=== PATIENT | female | born 1995 | race Caucasian/White ===

== ENCOUNTER → 2016-09-12 | Outpatient (CLI) | payer OTHER ==
[~2016-09-12] MED LIST: BCPILLS PO; BUSP15TA70 PO; ESCI1TAB10 PO; MULT1CHW4 PO
[2016-09-12 13:51] LABS: CHOLESTEROL/HDL RATIO 3.2; THYROID STIMULATING HORMONE 2.62 uIu/ml (0.300-4.500)
== END | disposition home or self-care (01) ==
LOC: C.LABBC 11:04
PROVIDERS: ATTEND Internal Medicine
DX: E78.5 Hyperlipidemia, unspecified (principal)

== ENCOUNTER → 2017-03-06 | Outpatient (CLI) | payer OTHER ==
[2017-03-06 11:21] LABS: URINE APPEARANCE CLEAR (CLEAR); URINE BILIRUBIN NEG (NEG); URINE COLOR YELLOW; URINE NITRITE NEG (NEG); URINE PH 7.5 (4.5-7.5); URINE SPECIFIC GRAVITY 1.015 (1.000-1.030); UROBILINOGEN NEG (NEG)
[2017-03-06 11:57] LABS: MANUAL MICROSCOPIC REQUIRED? NO; REVIEW REQ? NO; SULFASALICYLIC ACID POS (NEG)
--- NOTE | 2017-03-06 12:58 | DIAGNOSTIC IMAGING REPORT ---
KUB CLINICAL HISTORY: Right flank pain. COMPARISON STUDY: None. FINDINGS: The bowel gas pattern is normal. No urinary calculi are identified by radiography. Skeletal structures are unremarkable. IMPRESSION: 1. No urinary calculi identified. 2. No bowel obstruction. Electronically signed by: Sae Villagomez M.D. 03/06/2017 12:56 PM Dictated Date/Time: 03/06/2017 12:56 PM
== END | disposition home or self-care (01) ==
LOC: C.RADBC 10:54
PROVIDERS: ATTEND Internal Medicine
DX: R10.9 Unspecified abdominal pain (principal); R39.9 Unspecified symptoms and signs involving the genitourinary system

== ENCOUNTER 2017-07-25 11:10 | Emergency (ER) | payer OTHER ==
[~2017-07-25] VITALS: Ht 162.6 cm; Wt 55.6 kg
[2017-07-25 11:14] VITALS: Ht 162.6 cm; Wt 55.6 kg
[2017-07-25] MEDS ORDERED: CLON0.5T3 PO (11:49)
[2017-07-25] MEDS ORDERED: KETOROLAC TROMETHAMINE 30 MG/ML VIAL IV STA (12:01)
[2017-07-25] MEDS ORDERED: SODIUM CHLORIDE 0.9% 1000ML 1,000 ML IV STA (12:01)
[2017-07-25] MEDS ORDERED: ONDANSETRON INJ 2 MG/ML 2 ML VIAL IV STA (12:01)
[2017-07-25 12:15] LABS: URINE APPEARANCE CLEAR (CLEAR); URINE BILIRUBIN NEG (NEG); URINE COLOR YELLOW; URINE EPITHELIAL CELL AUTO 20-30 /lpf (0-5); URINE NITRITE NEG (NEG); URINE PH 8.5 (4.5-7.5); URINE SPECIFIC GRAVITY 1.019 (1.000-1.030); UROBILINOGEN NEG (NEG); ZZUR CULT IF INDIC CLEAN CATCH NO
[2017-07-25 12:17] LABS: MANUAL MICROSCOPIC REQUIRED? NO; REVIEW REQ? NO
[2017-07-25 12:18] LABS: BASO % 1.5 %; BASO ABS # 0.08 K/uL (0-0.2); COMPLETE YES; EOS % 2.8 %; HEMATOCRIT 38.4 % (37-47); IG% 0.7 %; LYMPH % 29.7 %; LYMPH ABS # 1.62 K/uL (1.2-3.4); MEAN CELL VOLUME 90.1 fL (80-100); MEAN CORPUSCULAR HGB CONC 33.3 g/dl (32-36); MONO % 8.1 %; NEUT % 57.2 %; PLATELET COUNT 269 K/uL (130-400); RED BLOOD COUNT 4.26 M/uL (4.2-5.4); WHITE BLOOD COUNT 5.45 K/uL (4.8-10.8)
--- NOTE | 2017-07-25 12:24 | DIAGNOSTIC IMAGING REPORT ---
CHEST ONE VIEW PORTABLE HISTORY: 21 years-old Female Evaluate Fever/Sepsis acute fever with sepsis COMPARISON: Chest radiograph 09/15/2015 TECHNIQUE: Portable AP view of the chest FINDINGS: Cardiac mediastinal and hilar silhouettes are within normal limits. No pneumothorax, pleural effusion, focal airspace consolidation or overt pulmonary edema. Bones of the chest appear grossly intact. IMPRESSION: No acute process. The above report was generated using voice recognition software. It may contain grammatical, syntax or spelling errors. Electronically signed by: Tripp Painter M.D. 07/25/2017 12:23 PM Dictated Date/Time: 07/25/2017 12:22 PM
[2017-07-25 12:27] LABS: ALT/SGPT 13 U/L (12-78); BLOOD UREA NITROGEN 5 mg/dl (7-18); BUN/CREATININE RATIO 7.9 (10-20); CALCIUM 8.7 mg/dl (8.5-10.1); CARBON DIOXIDE 26 mmol/L (21-32); CHLORIDE 105 mmol/L (98-107); CREATININE 0.67 mg/dl (0.60-1.20); GLUCOSE 97 mg/dl (70-99); POTASSIUM 3.7 mmol/L (3.5-5.1); SODIUM 139 mmol/L (136-145)
[2017-07-25 12:32] LABS: ALKALINE PHOSPHATASE 73 U/L (45-117); AST/SGOT 13 U/L (15-37); CKMB/CK RATIO 0.8 (0-3.0)
[2017-07-25 13:45] LABS: INFLUENZA A PCR Neg for Influ A (NEG); INFLUENZA B PCR Neg for Influ B (NEG)
--- NOTE | 2017-07-25 14:17 | EMERGENCY ROOM VISIT NOTE ---
History Report prepared by Denisa: Darion Ren Under the Supervision of: Dr. Zoran Osorio D.O. First contact with patient: 11:55 Chief Complaint: FLU LIKE SX Stated Complaint: DEHYDRATION, LIGHTHEADED, VOMITING History of Present Illness The patient is a 21 year old female who presents to the Emergency Room with complaints of flu-like symptoms that began 1 week ago. Her symptoms began with an episode of vomiting with nausea the next day. She presented to [facility] who tested her for strep throat which was negative. She then began to develop a cough with yellow sputum, congestion, and a sore throat. Her symptoms persisted throughout the week with some mild abdominal pain. When she woke up today, she had increased nausea with episodes of vomiting and diarrhea. She believes that she is dehydrated secondary to feeling fatigued. She denies any fevers, back pain, or any other abnormal symptoms. She denies any medical problems or known medication allergies. Source of History: patient Onset: 1 week ago Position: other (global) Symptom Intensity: moderate Quality: other (Flu-like symptoms) Timing: constant Associated Symptoms: + sorethroat, + cough, + nausea, + vomiting, + diarrhea , + fatigue, No fevers, No back pain Review of Systems See HPI for pertinent positives & negatives. A total of 10 systems reviewed and were otherwise negative. Past Medical & Surgical Medical Problems: (1) Anxiety (2) Depression (3) No chronic problems (4) Shortened [place] interval Family History Syncope Social History Smoking Status: Never Smoker Smokeless Tobacco Use: No Drug Use: none Marital Status: single Occupation Status: student Current/Historical Medications Scheduled Control Pills ( Control Pills), 1 TAB PO DAILY Buspirone Hcl (Buspar), 15 MG PO BID Escitalopram Oxalate (Lexapro), 20 MG PO DAILY Multiple Vitamins W/ Minerals (Adult Gummy), 1 TAB PO DAILY Scheduled PRN Clonazepam (Klonopin), 1 TAB PO UD PRN for Anxiety Allergies Coded Allergies: Penicillins (Verified Allergy, Intermediate, HIVES, 07/25/17) Shellfish Allergy (Unverified Allergy, Unknown, , 07/25/17) Physical Exam Vital Signs Date Time Temp Pulse Resp B/P (MAP) Pulse Ox O2 Delivery O2 Flow Rate FiO2 07/25/17 13:35 93 16 98 07/25/17 13:30 125/84 07/25/17 13:05 93 20 96 07/25/17 13:00 108/83 07/25/17 12:43 90 07/25/17 12:43 85 18 120/94 98 Room Air 07/25/17 12:41 120/94 07/25/17 11:14 36.7 103 18 125/94 98 Room Air Physical Exam CONSTITUTIONAL/VITAL SIGNS: Reviewed / noted above. GENERAL: Non-toxic in appearance. INTEGUMENTARY: Warm, dry, and [place]. HEAD: Normocephalic. EYES: without scleral icterus or trauma. ENT/OROPHARYNX: clear and moist. LYMPHADENOPATHY/NECK: Is supple without lymphadenopathy or meningismus. RESPIRATORY: Lungs clear and equal. CARDIOVASCULAR: Regular rate and rhythm. GI/ABDOMEN: Soft and nontender. No organomegaly or pulsatile mass. No rebound or guarding. Normal bowel sounds. EXTREMITIES: Warm and well perfused. BACK: No CVA tenderness. NEUROLOGICAL: Intact without focal deficits. PSYCHIATRIC: normal affect. MUSCULOSKELETAL: Normally developed with good muscle tone. Medical Decision & Procedures ER Provider Diagnostic Interpretation: Radiology results as stated below per my review and radiologist interpretation: CHEST ONE VIEW PORTABLE HISTORY: 21 years-old Female Evaluate Fever/Sepsis acute fever with sepsis COMPARISON: Chest radiograph 09/15/2015 TECHNIQUE: Portable AP view of the chest FINDINGS: Cardiac mediastinal and hilar silhouettes are within normal limits. No pneumothorax, pleural effusion, focal airspace consolidation or overt pulmonary edema. Bones of the chest appear grossly intact. IMPRESSION: No acute process. The above report was generated using voice recognition software. It may contain grammatical, syntax or spelling errors. Electronically signed by: Tripp Painter M.D. 07/25/2017 12:23 PM Dictated Date/Time: 07/25/2017 12:22 PM Laboratory Results 07/25/17 11:47 Red Blood Count 4.26, Mean Corpuscular Volume 90.1, Mean Corpuscular Hemoglobin 30.0, Mean Corpuscular Hemoglobin Concent 33.3, Mean Platelet Volume 11.0, Neutrophils (%) (Auto) 57.2, Lymphocytes (%) (Auto) 29.7, Monocytes (%) (Auto) 8.1, Eosinophils (%) (Auto) 2.8, Basophils (%) (Auto) 1.5, Neutrophils # (Auto) 3.12, Lymphocytes # (Auto) 1.62, Monocytes # (Auto) 0.44, Eosinophils # (Auto) 0.15, Basophils # (Auto) 0.08 07/25/17 11:47 Test 07/25/17 00:00 07/25/17 11:47 07/25/17 11:53 Influenza Type A (RT-PCR) Neg for Influ A (NEG) Influenza Type B (RT-PCR) Neg for Influ B (NEG) White Blood Count 5.45 K/uL (4.8-10.8) Red Blood Count 4.26 M/uL (4.2-5.4) Hemoglobin 12.8 g/dL (12.0-16.0) Hematocrit 38.4 % (37-47) Mean Corpuscular Volume 90.1 fL (80-100) Mean Corpuscular Hemoglobin 30.0 pg (25-34) Mean Corpuscular Hemoglobin Concent 33.3 g/dl (32-36) Platelet Count 269 K/uL (130-400) Mean Platelet Volume 11.0 fL (7.4-10.4) Neutrophils (%) (Auto) 57.2 % Lymphocytes (%) (Auto) 29.7 % Monocytes (%) (Auto) 8.1 % Eosinophils (%) (Auto) 2.8 % Basophils (%) (Auto) 1.5 % Neutrophils # (Auto) 3.12 K/uL (1.4-6.5) Lymphocytes # (Auto) 1.62 K/uL (1.2-3.4) Monocytes # (Auto) 0.44 K/uL (0.11-0.59) Eosinophils # (Auto) 0.15 K/uL (0-0.5) Basophils # (Auto) 0.08 K/uL (0-0.2) RDW Standard Deviation 45.7 fL (36.4-46.3) RDW Coefficient of Variation 13.9 % (11.5-14.5) Immature Granulocyte % (Auto) 0.7 % Immature Granulocyte # (Auto) 0.04 K/uL (0.00-0.02) Anion Gap 8.0 mmol/L (3-11) Est Creatinine Clear Calc Drug Dose 114.8 ml/min Estimated GFR () 145.6 Estimated GFR (Non- 125.7 BUN/Creatinine Ratio 7.9 (10-20) Calcium Level 8.7 mg/dl (8.5-10.1) Total Bilirubin 0.2 mg/dl (0.2-1) Direct Bilirubin < 0.1 mg/dl (0-0.2) Aspartate Amino Transf (AST/SGOT) 13 U/L (15-37) Alanine Aminotransferase (ALT/SGPT) 13 U/L (12-78) Alkaline Phosphatase 73 U/L (45-117) Total Creatine Kinase 74 U/L (26-192) Creatine Kinase MB 0.6 ng/ml (0.5-3.6) Creatine Kinase MB Ratio 0.8 (0-3.0) Total Protein 7.5 gm/dl (6.4-8.2) Albumin 3.0 gm/dl (3.4-5.0) Urine Color YELLOW Urine Appearance CLEAR (CLEAR) Urine pH 8.5 (4.5-7.5) Urine Specific Platinum 1.019 (1.000-1.030) Urine Protein NEG (NEG) Urine Glucose (UA) NEG (NEG) Urine Ketones NEG (NEG) Urine Occult Blood NEG (NEG) Urine Nitrite NEG (NEG) Urine Bilirubin NEG (NEG) Urine Urobilinogen NEG (NEG) Urine Leukocyte Esterase NEG (NEG) Urine WBC (Auto) 1-5 /hpf (0-5) Urine RBC (Auto) 0-4 /hpf (0-4) Urine Hyaline Casts (Auto) 1-5 /lpf (0-5) Urine Epithelial Cells (Auto) 20-30 /lpf (0-5) Urine Bacteria (Auto) NEG (NEG) Laboratory results as stated above per my review. Medications Administered Medications (Trade) Dose Ordered Sig/Иван Route Start Time Stop Time Status Last Admin Dose Admin Sodium Chloride 1,000 ml @ 999 mls/hr Q1H1M STAT IV 07/25/17 12:01 07/25/17 13:01 DC 07/25/17 12:36 999 MLS/HR Ketorolac Tromethamine (Toradol Inj) 30 mg NOW STAT IV 07/25/17 12:01 07/25/17 12:04 DC 07/25/17 12:37 30 MG Ondansetron HCl (Zofran Inj) 4 mg NOW STAT IV 07/25/17 12:01 07/25/17 12:04 DC 07/25/17 12:37 4 MG ECG Indication: vomiting Rate (beats per minute): 82 Rhythm: normal sinus Findings: T-wave inversion (V3 and V4), no ectopy ED Course 1155: Previous medical records were reviewed. The patient was evaluated in room C5. A complete history and physical examination was performed. 1201: Ordered Zofran Inj 4 mg IV, Toradol Inj 30 mg IV, Sodium Chloride 1000 ml @ 999 mls/hr IV 1330: On reevaluation, the patient is resting. I discussed the results and findings with the patient. She verbalized agreement of the treatment plan. She was discharged home. Medical Decision Differential includes viral illness, influenza, streptococcal pharyngitis, meningitis, pneumonia, sinusitis, UTI, pyelonephritis, and otitis media. This is a 21-year-old female who presents to the ED with a chief complaint of weakness, dehydration, sore throat, cough and congestion. She's had the symptoms for at least a week. She also reports having some vomiting and diarrhea today. The patient's vital signs are normal. Her physical exam was unremarkable. Blood work reveals a normal CBC, complete metabolic panel and urinalysis. A chest x-ray did not show acute disease. Troponin was negative. EKG shows a normal sinus rhythm with some T-wave inversions in V3 and V4. This is chronic based on previous EKGs. The patient's flu swab was negative. The patient was told results per cheese hydrated with IV fluids and treated with IV Zofran. She was also given IV Toradol. She was feeling better. She is felt to be stable for discharge and outpatient follow-up. Medication Reconcilliation Current Medication List: was personally reviewed by me Blood Pressure Screening Patient's blood pressure: Normal blood pressure Blood pressure disposition: Did not require urgent referral Impression Primary Impression: Flu-like symptoms Scribe Attestation The scribe's documentation has been prepared under my direction and personally reviewed by me in its entirety. I confirm that the note above accurately reflects all work, treatment, procedures, and medical decision making performed by me. Departure Information Dispostion Home / Self-Care Referrals No Doctor, Assigned (PCP) Forms HOME CARE DOCUMENTATION FORM, IMPORTANT VISIT INFORMATION Patient Instructions My [facility] Additional Instructions Follow-up with PCP or [facility] if your symptoms persist. Return to the emergency department for worsening or new symptoms or any concerns. You have been examined and treated today on an emergency basis only. This is not a substitute for, or an effort to provide, complete comprehensive medical care. It is impossible to recognize and treat all injuries or illnesses in a single emergency department visit. It is therefore important that you follow up closely with your doctor. Call as soon as possible for an appointment.
[2017-07-25 14:40] VITALS: BP 110/68; PULSE 90; TEMP 36.7; O2SAT 99
== END 2017-07-25 14:41 | disposition home or self-care (01) ==
LOC: C.EDB 11:12 → C.EDC 14:41
DX: R53.1 Weakness (principal); E86.0 Dehydration; J02.9 Acute pharyngitis, unspecified; R05 Cough; R11.2 Nausea with vomiting, unspecified; F41.9 Anxiety disorder, unspecified; F32.9 Major depressive disorder, single episode, unspecified; Z84.89 Family history of other specified conditions; Z79.899 Other long term (current) drug therapy

== ENCOUNTER → 2017-11-23 | Outpatient (CLI) | payer OTHER ==
[~2017-11-23] MED LIST changes: +CLON0.5T3 PO
== END | disposition home or self-care (01) ==
LOC: C.LABSPEC 13:23
PROVIDERS: ATTEND Physician Assistant
DX: Z01.419 Encounter for gynecological examination (general) (routine) without abnormal findings (principal)

== ENCOUNTER → 2017-11-23 | Outpatient (CLI) | payer OTHER | END | disposition home or self-care (01) | LOC: C.PAPS 14:31 | PROVIDERS: ATTEND Physician Assistant | DX: Z01.419 Encounter for gynecological examination (general) (routine) without abnormal findings (principal) ==